=== PATIENT | male | born 2000 | race Caucasian/White ===

== ENCOUNTER 2021-07-03 03:13 | Emergency (ER) | payer OTHER ==
[~2021-07-03] VITALS: Ht 180.3 cm; Wt 79.7 kg
[2021-07-03] MEDS ORDERED: AMOX1TAB61 PO (04:02)
--- NOTE | 2021-07-03 04:02 | PHYS DOC ---
Past History Past Medical History: No Pertinent History Past Surgical History: Other Additional Past Surgical Histo: wisdom teeth extraction Additional Smoking Information: VAPES Alcohol Use: None Drug Use: None General Adult EDM: Chief Complaint: MULTIPLE COMPLAINTS HPI: HPI: 20-year-old male presents with report of sore throat, body aches, fever/chills, and right ear discomfort. Reports has been ongoing for the past 3 days. Patient reports was seen 3 days ago at urgent care who tested him for COVID-19. Patient reports COVID-19 testing was negative. Patient reports difficulty with swallowing. Reports tonsils have enlarged. Denies known sick contacts. April ent does report COVID-19 vaccination with Moderna x 2. Review of Systems: Review of Systems: Constitutional: Reports subjective fever/chills and body aches Eyes: Denies redness or eye pain HENT: Denies nasal congestion; reports sore throat Respiratory: Denies cough or shortness of breath Cardiovascular: Denies chest pain or palpitations GI: Denies abdominal pain, nausea, or vomiting : Denies dysuria or hematuria Musculoskeletal: Denies back pain or joint pain Integument: Denies rash or skin lesions Neurologic: Denies headache, focal weakness or sensory changes Complete systems were reviewed and found to be within normal limits, except as documented in this note. Current Medications: Current Meds: Current Medications Medications (Trade) Dose Ordered Sig/Ashley Start Time Stop Time Status Last Admin Dose Admin Amoxicillin/ Clavulanate Potassium (Augmentin 875/ 125mg) 1 tab 1X ONCE 07/03/21 04:00 07/03/21 04:01 UNV Dexamethasone (Decadron) 10 mg 1X ONCE 07/03/21 04:00 07/03/21 04:01 UNV Allergies: Allergies: Allergies Coded Allergies Type Severity Reaction Last Updated Verified No Known Drug Allergies 07/03/21 No Physical Exam: PE: Constitutional: Well developed, well nourished, no acute distress, non-toxic appearance HENT: Normocephalic, atraumatic, pharynx erythematous with tonsillar enlargement, no exudate, left TM clear, right TM with erythema with bulging TM Eyes: PERRL, EOMI, conjunctiva normal, no discharge Neck: Normal range of motion, no tenderness, supple, no meningeal signs Lungs & Thorax: No respiratory distress, equal chest rise and fall Skin: Warm, dry, no erythema, no rash Extremities: No tenderness, ROM intact, no edema Neurologic: Alert and oriented X 3, no focal deficits noted Psychologic: Affect normal, judgment normal Current Patient Data: Vital Signs: Vital Signs Date Time Temp Pulse Resp B/P (MAP) Pulse Ox O2 Delivery O2 Flow Rate FiO2 07/03/21 03:30 99.4 87 14 123/70 (87) 96 Room Air EKG: EKG: [] Radiology/Procedures: Radiology/Procedures: [] Heart Score: C/O Chest Pain: N/A Course & Med Decision Making: Course & Med Decision Making Pertinent Lab studies reviewed. (See chart for details) Patient presents with HPI and physical exam concerning for strep pharyngitis. Patient also noted to have otitis media on the right. Rapid strep obtained. Symptomatic treatment provided with oral steroid. Empiric antibiotic initiated. Patient stable for discharge with outpatient follow-up with PCP. Discussed findings and plan with patient, who acknowledges understanding and agreement. Juan Disclaimer: Juan Disclaimer: This electronic medical record was generated, in whole or in part, using a voice recognition dictation system. Departure Departure: Impression: Primary Impression: Pharyngitis Qualified Codes: J02.9 - Acute pharyngitis, unspecified Additional Impression: Otitis media Qualified Codes: H66.90 - Otitis media, unspecified, unspecified ear Disposition: 01 HOME / SELF CARE / HOMELESS Condition: STABLE Referrals: PCP,UNKNOWN (PCP) Patient Instructions: Otitis Media, Adult, [id number], Viral and Bacterial Pharyngitis, [id number] Additional Instructions: Use over the counter Tylenol and/or Ibuprofen for pain or discomfort. May also take for fever > 100.3 F. Scripts Amoxicillin/Potassium Clav (AUGMENTIN 875-125 TABLET) 1 Each Tablet 1 TAB PO BID for Pharyngitis for 7 Days, #14 TAB 0 Refills Prov: AMOS BIRD DO 07/03/21 AMOS BIRD DO Jul 03, 2021 04:02
[2021-07-03 04:24] VITALS: BP 132/75
[2021-07-03] MEDS ORDERED: AMOXICILLIN/K CLAV 875/125MG TABLET. PO ONE (04:30)
[2021-07-03] MEDS ORDERED: DEXAMETHASONE 4 MG TABLET PO ONE (04:30)
== END 2021-07-03 04:30 | disposition home or self-care (01) ==
LOC: ER 03:13
DX: H66.91 Otitis media, unspecified, right ear (principal); J02.9 Acute pharyngitis, unspecified; F17.200 Nicotine dependence, unspecified, uncomplicated
CPT/HCPCS: 87070; 87880; 99283; J8540

== ENCOUNTER 2021-08-25 08:24 | Emergency (ER) | payer OTHER ==
[~2021-08-25] VITALS: Ht 177.8 cm; Wt 81.0 kg
[~2021-08-25 08:24] MED LIST: AMOX1TAB61 PO
--- NOTE | 2021-08-25 09:05 | PHYS DOC ---
Past History Past Medical History: No Pertinent History Past Surgical History: Other Additional Past Surgical Histo: LEFT FOOT Alcohol Use: None Drug Use: None Adult General Chief Complaint Chief Complaint: FINGER INJURY [facility] HPI Patient is a 20-year-old male presenting for right finger injury. Injury onset was yesterday evening. Patient reports he was squatting and an attempt to throw a bar behind his back, had weights subsequently trapped and crushed his right ring finger. Reports crush injury occurred at level of PIP to palm on ventral side. Patient denies any changes in motor or sensory or neuro function but states pain and swelling of been ongoing since injury onset with mild relief provided by ibuprofen and ice. 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 He is otherwise healthy with no medical issues, no medications taken on a daily basis. On arrival, patient complaining of mild pain 4 out of 10 severity only, admits to taking 500 mg Tyle nol prior to arrival Review of Systems Review of Systems Fourteen body systems of review of systems have been reviewed. See HPI for pertinent positives and negative responses, other [place] all other systems are negative, non-pertinent or non-contributory Allergies Allergies Allergies Coded Allergies Type Severity Reaction Last Updated Verified No Known Drug Allergies 08/25/21 No Physical Exam Physical Exam Constitutional: Well developed, well nourished, no acute distress, non-toxic appearance. HENT: Normocephalic, atraumatic, bilateral external ears normal, oropharynx moist, no oral exudates, nose normal. Eyes: PERRLA, EOMI, conjunctiva normal, no discharge. Neck: Normal range of motion, no tenderness, supple, no stridor. Cardiovascular: Heart rate regular, sinus rhythm, no murmurs rubs or gallops Lungs & Thorax: Bilateral breath sounds clear to auscultation Abdomen: Bowel sounds normal, soft, no tenderness, no masses, no pulsatile masses. Nonsurgical abdomen, no peritoneal signs Skin: Warm, dry, no erythema, no rash. Back: No tenderness, no CVA tenderness. Extremities: No cyanosis, no clubbing, ROM intact, 2+ radial pulses to bilateral upper extremities. Tenderness and mild soft tissue swelling appreciated to proximal third of right third finger, no Knievel sign, negative scaphoid tenderness Neurologic: Alert and oriented X 3, medial radial and ulnar nerves of bilateral upper extremities intact, normal motor & sensory function, no focal deficits noted. Psychologic: Affect normal, judgement normal, mood normal. Current Patient Data Vital Signs Vital Signs Date Time Temp Pulse Resp B/P (MAP) Pulse Ox O2 Delivery O2 Flow Rate FiO2 08/25/21 08:56 98.2 67 18 124/67 (86) 98 Room Air EKG EKG [] Radiology/Procedures Radiology/Procedures XR HAND_RIGHT 3 VIEWS DATE: 08/25/2021 9:00 AM INDICATION: RIGHT RING FINGER CRUSH INJURY COMPARISON: None. FINDINGS: Bones: There is no evidence of acute fracture or dislocation. Joints: The joint spaces are normal. Miscellaneous: None. IMPRESSION: No evidence of acute fracture. Electronically signed by: Elías Peraza MD (08/25/2021 9:26 AM) [id number] Heart Score C/O Chest Pain: No Risk Factors: Risk Factors: DM, Current or recent (<one month) smoker, HTN, HLP, family history of CAD, obesity. Risk Scores: Risk Factors: DM, Current or recent (<one month) smoker, HTN, HLP, family history of CAD, obesity. Course & Med Decision Making Course & Med Decision Making ABCs unremarkable HPI physical exam and comprehensive ER work-up nonconcerning for any emergent or surgical issues Discussed most likely diagnosis of contusion/crush nature and injury without any bony abnormality, should resolve with supportive care practices that were educated with patient at length. Joint decision to discharge home with strict PCP follow-up in outpatient setting Dragon Disclaimer Dragon Disclaimer This electronic medical record was generated, in whole or in part, using a voice recognition dictation system. Departure Departure: Impression: Primary Impression: Finger injury Disposition: HOME / SELF CARE / HOMELESS Condition: STABLE Referrals: ZABRINA MORALES (PCP) Patient Instructions: RICE - Routine Care for Injuries Additional Instructions: It is likely that you have experienced a contusion/crush type injury of your finger that is causing you pain. The best treatment for this injury is continued range of motion to prevent a frozen joint. A Rest, Ice, Compression, Elevation (RICE) strategy may also be helpful in the acute phase. Tylenol and/or ibuprofen should be utilized for pain as needed. Please follow up with your primary doctor. Please return to the ED if new or worrisome symptoms arise. GLORIA FAULKNER DO Aug 25, 2021 09:05
--- NOTE | 2021-08-25 09:28 | RAD ---
XR HAND_RIGHT 3 VIEWS DATE: 08/25/2021 9:00 AM INDICATION: RIGHT RING FINGER CRUSH INJURY COMPARISON: None. FINDINGS: Bones: There is no evidence of acute fracture or dislocation. Joints: The joint spaces are normal. Miscellaneous: None. IMPRESSION: No evidence of acute fracture. Electronically signed by: Elías Peraza MD (08/25/2021 9:26 AM) [id number]
[2021-08-25] MEDS: IBUPROFEN 600 MG TABLET. PO ONE (09:36)
[2021-08-25 10:00] VITALS: BP 122/82
== END 2021-08-25 10:06 | disposition home or self-care (01) ==
LOC: ER 08:24
DX: S69.91XA Unspecified injury of right wrist, hand and finger(s), initial encounter (principal); W23.0XXA Caught, crushed, jammed, or pinched between moving objects, initial encounter; Y93.89 Activity, other specified; Y92.89 Other specified places as the place of occurrence of the external cause; Y99.8 Other external cause status
CPT/HCPCS: 73130; 99283